=== PATIENT | male | born 1995 | race Caucasian/White ===

== ENCOUNTER → 2023-10-23 | Outpatient (REF) | payer OTHER ==
[2023-10-23 10:54] LABS: SEMEN APPEARANCE OPAQUE (OPAQUE); SEMEN VISCOSITY LIQUID (LIQUID); SEMEN VOLUME 2.1 ml (2.0-5.0); SEMEN pH 8.5 (7.0-8.0); SPERM CONCENTRATION 176.3 M/ml (>=15.0); WBC CONCENTRATION <=1 M/ml (<=1 M/ml)
== END ==
LOC: M SFHCPLAZ 10:45
PROVIDERS: ATTEND Family Medicine
DX: Z31.69 Encounter for other general counseling and advice on procreation (principal)

== ENCOUNTER → 2023-11-10 | Outpatient (REF) | payer OTHER | LOC: M SFHCDERM 10:40 | PROVIDERS: ATTEND Nurse Practitioner Family | DX: D22.5 Melanocytic nevi of trunk (principal) ==

== ENCOUNTER → 2023-12-28 | Outpatient (REF) | payer OTHER | LOC: M SFHCDERM 18:23 | PROVIDERS: ATTEND Physician Assistant | DX: D22.5 Melanocytic nevi of trunk (principal) ==

== ENCOUNTER → 2024-01-11 | Outpatient (REF) | payer OTHER | LOC: M SFHCDERM 17:08 | PROVIDERS: ATTEND Physician Assistant | DX: T81.49XA Infection following a procedure, other surgical site, initial encounter (principal); Y93.9 Activity, unspecified; Y92.9 Unspecified place or not applicable ==

== ENCOUNTER → 2024-01-18 | Outpatient (REF) | payer OTHER | LOC: M SFHCDERM 17:44 | PROVIDERS: ATTEND Physician Assistant | DX: T81.49XA Infection following a procedure, other surgical site, initial encounter (principal) ==

== ENCOUNTER → 2024-03-29 | Outpatient (REF) | payer OTHER | LOC: M SFHCDERM 16:32 | PROVIDERS: ATTEND Nurse Practitioner Family | DX: Z51.89 Encounter for other specified aftercare (principal) ==